=== PATIENT | male | born 1955 | race African-American/Black ===

== ENCOUNTER 2023-01-18 08:48 | Emergency (ER) | payer MEDICARE, OTHER ==
[2023-01-18 09:36] LABS: #Monocytes 0.7 10x3/uL (0.0-1.1); #Neutrophils 4.5 10x3/uL (1.5-8.4); %Basophils 0.4 % (0.0-2.0); %Eosinophils 0.4 % (0.0-6.0); %Lymphocytes 21.4 % (18.0-47.0); %Monocytes 10.8 % (0.0-10.0); Mean Corpuscular HGB CONC 31.3 g/dL (32.0-36.0); Mean Corpuscular Hemoglobin 24.9 pg (27.0-33.0); Mean Corpuscular Volume 79.3 fl (81.2-95.1); Mean Platelet Volume 11.1 fl (7.4-10.4); Platelet Count 189 10x3/uL (150-450); RBC Distribution Width 15.8 % (11.5-14.5); Red Blood Cell (RBC) Count 5.23 10x6/uL (4.32-5.72); White Blood Cell (WBC) Count 6.8 10x3/uL (3.5-10.5)
[2023-01-18 09:49] LABS: ALT (SGPT) 16 U/L (8-55); AST (SGOT) 21 U/L (5-34); Albumin 4.3 g/dL (3.4-4.8); Alkaline Phosphatase 71 U/L (40-110); Anion Gap 16 mmol/L (10-20); BUN (Urea Nitrogen) 13 mg/dL (8.4-25.7); Bilirubin, Total 0.5 mg/dL (0.2-1.2); CK (CPK) 113 U/L (30-200); Calc. Creatinine Clearance 0 mL/min (70-130); Calcium 9.4 mg/dL (7.8-10.44); Carbon Dioxide 21 mmol/L (23-31); Chloride 109 mmol/L (98-107); Estimated GFR 71; Glucose 83 mg/dL (80-115); Lipase 22 U/L (8-78); Potassium 4.2 mmol/L (3.5-5.1); Protein, Total 7.3 g/dL (5.8-8.1); Sodium 142 mmol/L (136-145)
[2023-01-18] MEDS ORDERED: Aspirin Chewable 81 MG TAB ONE (09:56)
[2023-01-18] MEDS ORDERED: Ketorolac Tromethamine 30 MG/ML VIAL ONE (10:01)
[2023-01-18] MEDS ORDERED: Nitroglycerin 2% Ointment 1 INCH/1 GM Packet ONE (10:01)
[2023-01-18] MEDS ORDERED: Iopamidol 370 76% 100 ML VIAL ONE (10:10)
[2023-01-18] MEDS ORDERED: Morphine 4 MG/ML VIAL ONE (11:13)
[2023-01-18 11:32] LABS: Amphetamine Not Detected (NotDetected); Barbiturates Screen Not Detected (NotDetected); Benzodiazepine Screen Not Detected (NotDetected); Cocaine Metabolite Screen Not Detected (NotDetected); Methadone Not Detected (NotDetected); Methamphetamine Not Detected (NotDetected); Opiate Screen Not Detected (NotDetected); Oxycodone Screen Not Detected (NotDetected); Phencyclidine (PCP) Not Detected (NotDetected); THC/Cannabinoid Screen Not Detected (NotDetected); Tricyclic Screen Not Detected (NotDetected)
[2023-01-18] MEDS ORDERED: Nitroglycerin 0.4 MG TAB (25 Tab Bottle) SL PRN (12:25)
[2023-01-18] MEDS ORDERED: Electrolyte Replacement Protocol 1 EACH FS SCH (12:30)
[2023-01-18 12:47] LABS: Troponin I 0.017 ng/mL (< 0.028)
[2023-01-18 13:09] LABS: Magnesium 1.8 mg/dL (1.6-2.6)
[2023-01-18] MEDS ORDERED: Morphine 2 MG/ML VIAL SLOW IVP PRN (13:42)
[2023-01-18] MEDS ORDERED: Nitroglycerin 2% Ointment 1 INCH/1 GM Packet TOP SCH (14:00)
[2023-01-18] MEDS ORDERED: Atorvastatin Calcium 40 MG TAB PO SCH (21:00)
[2023-01-19] MEDS ORDERED: Aspirin 81 mg Enteric Coated Tablet PO SCH (09:00)
== END 2023-01-18 14:20 | disposition home or self-care (01) ==
LOC: CSHERS 08:48
DX: R07.9 Chest pain, unspecified (principal); I10 Essential (primary) hypertension
CPT/HCPCS: 71045; 71275; 80053; 80306; 82550; 83690; 83735; 83880; 84484; 85025; 85379; 93005; 96374; 96375; J1885; J2270; Q9967

== ENCOUNTER 2023-03-05 19:37 | Emergency (ER) | payer MEDICARE ==
[2023-03-05 20:27] LABS: Anion Gap 18 mmol/L (10-20); BUN (Urea Nitrogen) 9 mg/dL (8.4-25.7); Calc. Creatinine Clearance 0 mL/min (70-130); Calcium 9.6 mg/dL (7.8-10.44); Carbon Dioxide 21 mmol/L (23-31); Chloride 106 mmol/L (98-107); Estimated GFR 73; Glucose 87 mg/dL (80-115); Potassium 3.8 mmol/L (3.5-5.1); Sodium 141 mmol/L (136-145)
[2023-03-05] MEDS ORDERED: Aspirin Chewable 81 MG TAB ONE (20:47)
[2023-03-05] MEDS ORDERED: Nitroglycerin 0.4 MG TAB 1 EACH ONE ×2 (20:48→20:58)
[2023-03-05 20:50] LABS: #Monocytes 0.8 10x3/uL (0.0-1.1); #Neutrophils 5.3 10x3/uL (1.5-8.4); %Basophils 0.4 % (0.0-2.0); %Eosinophils 0.5 % (0.0-6.0); %Lymphocytes 25.4 % (18.0-47.0); %Monocytes 9.3 % (0.0-10.0); %Neutrophils 63.9 % (40.0-75.0); Hemoglobin 14.3 g/dL (13.5-17.5); Mean Corpuscular HGB CONC 31.8 g/dL (32.0-36.0); Mean Corpuscular Hemoglobin 25.9 pg (27.0-33.0); Mean Corpuscular Volume 81.3 fl (81.2-95.1); Mean Platelet Volume 12.1 fl (7.4-10.4); Platelet Count 195 10x3/uL (150-450); RBC Distribution Width 14.7 % (11.5-14.5); Red Blood Cell (RBC) Count 5.52 10x6/uL (4.32-5.72); White Blood Cell (WBC) Count 8.4 10x3/uL (3.5-10.5)
[2023-03-05] MEDS ORDERED: Acetaminophen 500 MG TAB ONE (21:19)
[2023-03-05] MEDS ORDERED: hydrALAZINE 20 MG/ML VIAL ONE (21:19)
[2023-03-05] MEDS ORDERED: Morphine 4 MG/ML VIAL ONE (22:56)
== END 2023-03-06 01:18 | disposition home or self-care (01) ==
LOC: CSHERS 19:37
DX: R07.9 Chest pain, unspecified (principal); I10 Essential (primary) hypertension
CPT/HCPCS: 71045; 80048; 80307; 84484 ×2; 85025; 93005; 96374; 96375; 99285; J0360; J2270

== ENCOUNTER 2023-05-08 23:40 | Inpatient (IN) | payer MEDICARE, MEDICAID ==
[~2023-05-08 23:40] MED LIST: Iopamidol 370 76% 100 ML VIAL ONE
[2023-05-09 00:47] LABS: #Monocytes 0.8 10x3/uL (0.0-1.1); #Neutrophils 7.2 10x3/uL (1.5-8.4); %Basophils 0.3 % (0.0-2.0); %Eosinophils 0.1 % (0.0-6.0); %Lymphocytes 14.9 % (18.0-47.0); %Monocytes 8.1 % (0.0-10.0); %Neutrophils 74.8 % (40.0-75.0); Hemoglobin 12.9 g/dL (13.5-17.5); Mean Corpuscular HGB CONC 31.7 g/dL (32.0-36.0); Mean Corpuscular Hemoglobin 24.9 pg (27.0-33.0); Mean Corpuscular Volume 78.4 fl (81.2-95.1); Mean Platelet Volume 10.3 fl (7.4-10.4); Platelet Count 243 10x3/uL (150-450); RBC Distribution Width 13.7 % (11.5-14.5); Red Blood Cell (RBC) Count 5.19 10x6/uL (4.32-5.72); White Blood Cell (WBC) Count 9.7 10x3/uL (3.5-10.5)
[2023-05-09 00:59] LABS: ALT (SGPT) 14 U/L (8-55); AST (SGOT) 19 U/L (5-34); Albumin 3.7 g/dL (3.4-4.8); Alkaline Phosphatase 67 U/L (40-110); Anion Gap 15 mmol/L (10-20); BUN (Urea Nitrogen) 13 mg/dL (8.4-25.7); Bilirubin, Total 0.5 mg/dL (0.2-1.2); Calc. Creatinine Clearance 0 mL/min (70-130); Calcium 9.7 mg/dL (7.8-10.44); Carbon Dioxide 23 mmol/L (23-31); Chloride 97 mmol/L (98-107); Estimated GFR 81; Globulin 3.4 g/dL (2.4-3.5); Glucose 84 mg/dL (80-115); Lipase 22 U/L (8-78); Magnesium 1.7 mg/dL (1.6-2.6); Potassium 3.7 mmol/L (3.5-5.1); Protein, Total 7.1 g/dL (5.8-8.1); Sodium 131 mmol/L (136-145)
[2023-05-09] MEDS ORDERED: Ketorolac Tromethamine 30 MG/ML VIAL ONE (01:30)
[2023-05-09] MEDS ORDERED: Morphine 4 MG/ML VIAL ONE (02:55)
[2023-05-09] MEDS ORDERED: Ondansetron PF 4 MG/2 ML Vial ONE (02:55)
[2023-05-09] MEDS ORDERED: Calcium Carbonate 500 MG ChewTAB PO PRN (03:15)
[2023-05-09] MEDS ORDERED: Guaifenesin DM 100-10/5 ML UDCUP PO PRN (03:15)
[2023-05-09] MEDS ORDERED: Senokot S 8.6-50 MG TAB PO PRN (03:15)
[2023-05-09] MEDS ORDERED: Bisacodyl 5 MG TAB PO PRN (03:15)
[2023-05-09] MEDS ORDERED: Ondansetron PF 4 MG/2 ML Vial IVP PRN (03:15)
[2023-05-09] MEDS ORDERED: Ipratropium/Albuterol 3 ML NEB NEB PRN (03:20)
[2023-05-09 04:12] LABS: Anion Gap 19 mmol/L (10-20); BUN (Urea Nitrogen) 14 mg/dL (8.4-25.7); Calc. Creatinine Clearance 0 mL/min (70-130); Calcium 10.5 mg/dL (7.8-10.44); Carbon Dioxide 18 mmol/L (23-31); Chloride 101 mmol/L (98-107); Estimated GFR 75; Glucose 94 mg/dL (80-115); Iron 36 ug/dL (65-175); Iron Binding Capacity, Total 283 mcg/dL (261-462); Potassium 4.2 mmol/L (3.5-5.1); Sodium 134 mmol/L (136-145)
[2023-05-09 05:30] VITALS: BMI 28.0
[2023-05-09] MEDS: HYDROcodone/Acetaminophen 5/325 mg Tablet PO PRN ×2 (07:47→14:19)
[2023-05-09] MEDS: Aspirin 81 mg Enteric Coated Tablet PO SCH (09:04)
[2023-05-09] MEDS: Carvedilol 3.125 MG TAB PO SCH ×2 (09:05→16:59)
[2023-05-09] MEDS: Famotidine 20 MG TAB PO SCH ×2 (09:05→22:58)
[2023-05-09] MEDS: Sacubitril 24MG/Valsartan 26 MG TAB PO SCH ×2 (09:05→22:58)
[2023-05-09] MEDS ORDERED: Piperacillin/Tazobactam 3.375 GM in Sodium Chloride 0.9% 100 ML IVPB SCH (11:30)
[2023-05-09 12:55] LABS: HIV (1/2) Antibody/Antigen Non-Reactive (NonReactive); HIV 1/2 INDEX 0.06 S/CO (<1.00)
[2023-05-09] MEDS: Piperacillin/Tazobactam 3.375 GM in Sodium Chloride 0.9% 100 ML IVPB SCH ×2 (14:14→22:57)
[2023-05-09] MEDS: Atorvastatin Calcium 40 MG TAB PO SCH (22:58)
[2023-05-10] MEDS: HYDROcodone/Acetaminophen 5/325 mg Tablet PO PRN ×3 (01:44→22:29)
[2023-05-10 04:12] LABS: #Monocytes 0.6 10x3/uL (0.0-1.1); #Neutrophils 3.7 10x3/uL (1.5-8.4); %Basophils 0.4 % (0.0-2.0); %Eosinophils 0.7 % (0.0-6.0); %Lymphocytes 19.9 % (18.0-47.0); %Neutrophils 66.9 % (40.0-75.0); Hemoglobin 12.4 g/dL (13.5-17.5); Mean Corpuscular HGB CONC 31.2 g/dL (32.0-36.0); Mean Corpuscular Hemoglobin 24.8 pg (27.0-33.0); Mean Corpuscular Volume 79.2 fl (81.2-95.1); Mean Platelet Volume 10.7 fl (7.4-10.4); Platelet Count 258 10x3/uL (150-450); RBC Distribution Width 13.8 % (11.5-14.5); Red Blood Cell (RBC) Count 5.01 10x6/uL (4.32-5.72); White Blood Cell (WBC) Count 5.6 10x3/uL (3.5-10.5)
[2023-05-10 04:25] LABS: Anion Gap 15 mmol/L (10-20); BUN (Urea Nitrogen) 14 mg/dL (8.4-25.7); Calc. Creatinine Clearance 79 mL/min (70-130); Calcium 9.7 mg/dL (7.8-10.44); Carbon Dioxide 22 mmol/L (23-31); Chloride 101 mmol/L (98-107); Estimated GFR 72; Glucose 103 mg/dL (80-115); Magnesium 1.8 mg/dL (1.6-2.6); Potassium 3.9 mmol/L (3.5-5.1); Sodium 134 mmol/L (136-145)
[2023-05-10] MEDS: Piperacillin/Tazobactam 3.375 GM in Sodium Chloride 0.9% 100 ML IVPB SCH ×3 (08:40→22:11)
[2023-05-10] MEDS: Carvedilol 3.125 MG TAB PO SCH ×2 (08:41→15:54)
[2023-05-10] MEDS: Aspirin 81 mg Enteric Coated Tablet PO SCH (08:41)
[2023-05-10] MEDS: Famotidine 20 MG TAB PO SCH ×2 (08:41→22:11)
[2023-05-10] MEDS: Sacubitril 24MG/Valsartan 26 MG TAB PO SCH ×2 (08:41→22:12)
[2023-05-10] MEDS: Atorvastatin Calcium 40 MG TAB PO SCH (22:12)
[2023-05-11] MEDS: Zolpidem Tartrate 5 MG TAB PO PRN ×2 (03:26→22:45)
[2023-05-11] MEDS: Famotidine 20 MG TAB PO SCH ×2 (08:34→22:39)
[2023-05-11] MEDS: HYDROcodone/Acetaminophen 5/325 mg Tablet PO PRN ×3 (08:34→22:39)
[2023-05-11] MEDS: Sacubitril 24MG/Valsartan 26 MG TAB PO SCH ×2 (08:35→22:39)
[2023-05-11] MEDS: Ferrous Sulfate 325 MG TAB PO SCH (08:35)
[2023-05-11] MEDS: Piperacillin/Tazobactam 3.375 GM in Sodium Chloride 0.9% 100 ML IVPB SCH ×2 (08:35→15:19)
[2023-05-11] MEDS: Carvedilol 3.125 MG TAB PO SCH ×2 (08:35→15:19)
[2023-05-11] MEDS: Aspirin 81 mg Enteric Coated Tablet PO SCH (08:35)
[2023-05-11] MEDS ORDERED: Piperacillin/Tazobactam 3.375 GM VIAL ONE (15:11)
[2023-05-11] MEDS: Amoxicillin/Potassium Clav 875 MG TAB PO SCH (22:38)
[2023-05-11] MEDS: Apixaban 5 MG TAB PO SCH (22:39)
[2023-05-11] MEDS: Atorvastatin Calcium 40 MG TAB PO SCH (22:40)
[2023-05-12] MEDS: Sacubitril 24MG/Valsartan 26 MG TAB PO SCH ×2 (09:05→21:04)
[2023-05-12] MEDS: Apixaban 5 MG TAB PO SCH ×2 (09:05→21:03)
[2023-05-12] MEDS: Famotidine 20 MG TAB PO SCH ×2 (09:05→21:04)
[2023-05-12] MEDS: Ferrous Sulfate 325 MG TAB PO SCH (09:05)
[2023-05-12] MEDS: Acetaminophen 325 MG TAB PO PRN (09:05)
[2023-05-12] MEDS: Aspirin 81 mg Enteric Coated Tablet PO SCH (09:05)
[2023-05-12] MEDS: Amoxicillin/Potassium Clav 875 MG TAB PO SCH ×2 (09:06→21:04)
[2023-05-12] MEDS: Carvedilol 3.125 MG TAB PO SCH ×2 (09:06→17:30)
[2023-05-12] MEDS: Atorvastatin Calcium 40 MG TAB PO SCH (21:04)
[2023-05-13] MEDS: Sacubitril 24MG/Valsartan 26 MG TAB PO SCH ×3 (09:00→21:19)
[2023-05-13] MEDS: Famotidine 20 MG TAB PO SCH ×2 (09:20→21:19)
[2023-05-13] MEDS: Apixaban 5 MG TAB PO SCH ×2 (09:21→21:19)
[2023-05-13] MEDS: Aspirin 81 mg Enteric Coated Tablet PO SCH (09:22)
[2023-05-13] MEDS: Ferrous Sulfate 325 MG TAB PO SCH (09:22)
[2023-05-13] MEDS: Carvedilol 3.125 MG TAB PO SCH ×2 (09:22→17:58)
[2023-05-13] MEDS: Amoxicillin/Potassium Clav 875 MG TAB PO SCH ×2 (09:22→21:18)
[2023-05-13 14:15] LABS: QuantiFERON-TB Gold Plus Indeterminate (Negative)
[2023-05-13] MEDS: Atorvastatin Calcium 40 MG TAB PO SCH (21:19)
[2023-05-14] MEDS: Acetaminophen 325 MG TAB PO PRN (01:20)
[2023-05-14] MEDS: Carvedilol 3.125 MG TAB PO SCH (10:29)
[2023-05-14] MEDS: Apixaban 5 MG TAB PO SCH (10:29)
[2023-05-14] MEDS: Aspirin 81 mg Enteric Coated Tablet PO SCH (10:29)
[2023-05-14] MEDS: Famotidine 20 MG TAB PO SCH (10:29)
[2023-05-14] MEDS: Ferrous Sulfate 325 MG TAB PO SCH (10:29)
[2023-05-14] MEDS: Amoxicillin/Potassium Clav 875 MG TAB PO SCH (10:30)
[2023-05-14] MEDS: Sacubitril 24MG/Valsartan 26 MG TAB PO SCH (10:30)
[2023-05-14 12:42] VITALS: BP 129/71; TEMP 97.7
[2023-05-18] MEDS ORDERED: Apixaban 5 MG TAB PO SCH (21:00)
== END 2023-05-14 13:47 | disposition home or self-care (01) | DRG 175 ==
LOC: CSHERS 23:40 → CSHTELE 05-09 04:27
PROVIDERS: ADMIT Student in an Organized Health Care Education/Training Program; ATTEND Internal Medicine
DX: I26.99 Other pulmonary embolism without acute cor pulmonale (principal); J96.01 Acute respiratory failure with hypoxia; I50.22 Chronic systolic (congestive) heart failure; K56.7 Ileus, unspecified; I42.0 Dilated cardiomyopathy; I25.10 Atherosclerotic heart disease of native coronary artery without angina pectoris; I11.0 Hypertensive heart disease with heart failure; E78.5 Hyperlipidemia, unspecified; D64.9 Anemia, unspecified; F17.210 Nicotine dependence, cigarettes, uncomplicated; D50.9 Iron deficiency anemia, unspecified; Z79.82 Long term (current) use of aspirin; Z79.899 Other long term (current) drug therapy; I25.2 Old myocardial infarction
CPT/HCPCS: 36415; 71045; 71275; 74176; 80048; 80053; 82310; 82728; 83540; 83550; 83690; 83735; 83880; 84145; 84484; 85025; 86480; 87389; 93005; 93306; 93970; 94760; 94762; 96372; 96374; 96375; J1650; J1885; J2270; J2405; J2543; J3490; Q9967